=== PATIENT | male | born 1985 | race Caucasian/White ===

== ENCOUNTER 2019-08-23 19:22 | Emergency (ER) | payer OTHER ==
[~2019-08-23] VITALS: Ht 180.3 cm; Wt 91.8 kg
--- NOTE | 2019-08-23 19:58 | NUR ---
PT BIB [facility] FOR ANXIETY AND TACHYCARDIA AFTER PT WAS ATTEMPTING TO WORK ON DOOR AND BECAME FRUSTRATED. PT BECAME ANXIOUS AND HEART RACED WHICH INCREASED HIS ANXIETY AFTER PT EXPERIENCED SIMILAR SYMPTOMS DURING SA ABOUT 10 DAYS BY OVERDOSING ON BUPROPRION, WHICH LEAD TO SZ AND THORACIC COMPRESIION FX PER PT. MOTHER AT BEDSIDE. PT DENIES SI TODAY. [facility] ATTEMPTED VAGAL MANEUVERS WITH HEART RATE OF 160, THEN FLUID BOLUS OF 500 OF NS WITH NO RESULTS. PT WAS CALMED DOWN THROUGH VERBAL COACHING BY [facility] WHICH LED TO DECREASED HR.
[2019-08-23] MEDS ORDERED: KETOROLAC 30 MG/1 ML IVPush ONE (20:00)
[2019-08-23] MEDS ORDERED: KETOROLAC 30 MG/1 ML ONE (20:24)
--- NOTE | 2019-08-23 20:50 | NUR ---
PT REPORT SHE FEELS MUCH BETTER AND IS READY TO GO HOME. DR. YANCEY AWARE.
[2019-08-23 20:57] VITALS: BP 135/72
== END 2019-08-23 21:08 | disposition home or self-care (01) ==
LOC: ED 20:18
DX: F41.1 Generalized anxiety disorder (principal); R06.4 Hyperventilation; M54.5 Low back pain; R00.0 Tachycardia, unspecified
CPT/HCPCS: 93005; 96374; 99283; J1885; Q0177